=== PATIENT | male | born 1945 | race Caucasian/White ===

== ENCOUNTER → 2020-02-01 11:46 | Outpatient (CLI) | payer MEDICARE, SELFPAY | PROVIDERS: PCP Family Medicine; Visit Provider Family Medicine | DX: Z03.818 Encounter for observation for suspected exposure to other biological agents ruled out (principal) | CPT/HCPCS: U0003 ==

== ENCOUNTER → 2020-08-07 15:09 | Outpatient (CLI) | payer MEDICARE, OTHER, SELFPAY ==
--- NOTE | 2020-08-07 15:34 | XR_ITS ---
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 Mmxrkukx-sy-dsaczh degenerative changes of the right knee joint are noted with the joint space loss, tricompartmental osteophyte formation and subchondral sclerosis. There is focal ossified density noted in the suprapatellar joint space, may represent a loose body. Suprapatellar joint effusion is noted. Incidental note is made of fabella. Vascular calcification is noted. Patellar tendon enthesopathy. Other findings:None. IMPRESSION: Moderate to severe degenerative changes of the knee joint noted. Suprapatellar joint effusion. Possible loose body. Intramedullary panfilo of the distal femur is partially visualized. Dictated by: Erica Bailey 08/07/2020 15:57 Erica Bailey in [place] 08/07/2020 15:57
== END ==
PROVIDERS: PCP Nurse Practitioner Family; Visit Provider Nurse Practitioner Family
DX: M25.561 Pain in right knee (principal); M17.11 Unilateral primary osteoarthritis, right knee
CPT/HCPCS: 73562